=== PATIENT | male | born 1950 | race Caucasian/White ===

== ENCOUNTER 2016-08-15 08:17 | Outpatient (CLI) | payer MEDICARE, OTHER ==
[~2016-08-15] VITALS: Ht 182.9 cm; Wt 85.5 kg
--- NOTE | ~2016-08-15 | CATH ---
Cardiac Diagnostic + PCI Report Demographics Patient Name AR Blackwell Gender Male Date of 1950 Age 66 year(s) Patient Number [id number] Date of Study 08/15/2016 Visit Number [id number] Room Number [id number] [place] [id number] Ht 183 cm Wt 84.2 kg Referring Steve Dukes MD Primary Physician Physician Per[facility] Secondary Physician Physician Sangeeta VIZCAINO Diagnostic [facility] Assisting Physician Physician Sangeeta VIZCAINO Interventional [facility] Physician Creative Developer Physician Sangeeta VIZCAINO Addendum Added RCA lesion info Findings and Conclusions Diagnostic Findings and Conclusion Two vessel CAD. RCA mid 80%. LAD mid 60% at site of bifurcation with large diagonal branch. Diagnostic Recommendations PCI of RCA. Medical therapy for LAD lesion, if patient continues to have angina consider stress test on GDMT. Interventional Findings and Conclusion PCI of mid RCA using BRITTNEY with BRITTNEY. 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 s/p BRITTNEY of ostial/proximal RCA at the site of dissection since it was causing significant pressure dampening, it is important to seal the dissection with a stent. Interventional Recommendations DAPT x 1 year. Patient will be observed overnight. Hydration and followup creatinine. Patient has been instructed to not lift anything more than 5 pounds for 1 week. I will plan on seeing the patient back in 2 week(s). Aggressive risk factor management. Aggressive medical therapy for coronary artery disease. Hydration and follow up Creatinine. Cardiac diet . Optimization of medical therapy as an outpatient. Referral to Cardiac Rehabilitation now and at discharge . Procedure Description The patient was brought to the diagnostic cardiac catheterization-EP laboratory in the fasting, non-sedated state. Informed consent was obtained in the written and verbal form after the risks and benefits were explained. The patient had no further questions and agreed to proceed. The planned puncture-incision site(s) were shaved and prepped with ChloraPrep and draped in the usual sterile manner. Conscious sedation, supplemental oxygen, and pain control medications were delivered by a registered nurse under physician guidance. Surface ECG rhythm, blood pressure measurement, and pulse oximetry were monitored throughout the procedure. Arterial access. The access site was infiltrated with lidocaine. The vessel was entered with the Seldinger technique. A sheath was advanced into the vessel and used for catheter placement. Selective left coronary angiography. A catheter was advanced into the left coronary vessel ostium under Fluoroscopic guidance. Contrast was injected by hand. Images were obtained in multiple projections. Selective right coronary angiography. A catheter was advanced into the right coronary vessel ostium under fluoroscopic guidance. Contrast was injected by hand. Images were obtained in multiple projections. Stent Placement: A guiding catheter was used to intubate the vessel. A 0.14 wire was used to cross the lesion. A Drug Eluting Stent was placed. Post placement angiograms were performed. Arterial artery hemostasis was achieved. The patient was transferred to a regular nursing floor via cart accompanied by a nurse. The patient left the laboratory in stable condition. Diagnostic Cath Status: Elective Interventional Cath Status: Urgent Procedure Procedure Type Diagnostic procedure:Angiography:, Coronary Angios PCI procedure:Drug Eluting Coronary Stent:, RCA Indications: Abnormal Stress Test, Chest pain and Shortness of breath. The procedure was explained in detail to the patient. Risks, complications and alternative treatments were reviewed. Written consent was obtained. Medications Reviewed with Patient prior to Procedure. Angiographic Findings Dominance: Right Cardiac Arteries and Lesion Findings LMCA: Normal (0% Stenosis).Separate OS LAD: Lesion on Prox LAD: Ostial.50% stenosis . Lesion on Prox LAD: Proximal subsection.50% stenosis . Lesion on Mid LAD: Mid subsection.60% stenosis . Lesion on 1st Diag: Ostial.30% stenosis . LCx: There is a previous stent on 2nd Ob Margot showing wide patency. Lesion on Prox CX: Proximal subsection.20% stenosis . Lesion on 2nd Ob Margot: Comments:Stents patent. RCA: Normal (0% Stenosis).PDA and PL normal. Lesion on Mid RCA: Distal subsection.80% stenosis 24 mm length reduced to 0%. Pre procedure AIRAM III flow was noted. Post Procedure AIRAM III flow was present. The guidewire cross was successful.The lesion was diagnosed as a moderate risk lesion.Culprit lesion. Treatment results:Interventional treatment was successful. Devices used - Runthrough NS .014 x 180. Number of passes: 1. - Promus Premier 3.0 x 24 Stent. 1 inflation(s) to a max pressure of: 14 mireya. - NC Emerge Balloon 3.0 x 15. 1 inflation(s) to a max pressure of: 16 mireya. Lesion on Prox RCA: Proximal subsection.0% stenosis 12 mm length reduced to 0%. Pre procedure AIRAM III flow was noted. Post Procedure AIRAM III flow was present. The guidewire cross was successful.The lesion was diagnosed as a moderate risk lesion. Treatment results:Dissection occurred while intervening.It was treated with a stent. Comments:Guide induced dissection treated with stenting Devices used - Promus Premier 3.0 x 12 Stent. 2 inflation(s) to a max pressure of: 14 mireya. Coronary Tree Procedure Data Procedure Date Date: 08/15/2016Start: 12:46 PMEnd: 01:35 PM Entry Locations - Retrograde Percutaneous access was performed through the Right Radial artery (Primary location). A 6 Fr sheath was inserted. Hemostasis was successfully obtained using Mechanical Compression. Closure Comments: Radial band applied by Sharad Alex. 12 ml's used.. Procedure Medications Order and Administration + + + + + !Time !Medication !Dosage !Route ! + + + + + !08/15/2016 12:45 !Versed !1 mg !I.V. ! !PM ! ! ! ! + + + + + !08/15/2016 12:45 !Fentanyl !50 mcg !I.V. ! !PM ! ! ! ! + + + + + !08/15/2016 12:51 !Heparin (ACC_3) !5000 units !I.V. bolus ! !PM ! ! ! ! + + + + + !08/15/2016 01:02 !Angiomax (Bivalirudin) !65 mg !I.V. bolus ! !PM !(ACC_5) ! ! ! + + + + + 08/15/2016 01:04 !Angiomax (Bivalirudin) !1.75 mg/kg/hr!I.V. drip ! !PM !(ACC_5) ! ! ! + + + + + 08/15/2016 01:05 !Fentanyl !50 mcg !I.V. ! !PM ! ! ! ! + + + + + !08/15/2016 01:05 !Versed !1 mg !I.V. ! !PM ! ! ! ! + + + + + !08/15/2016 01:18 !Nitroglycerin !200 mcg !I.C. ! !PM ! ! ! ! + + + + + !08/15/2016 01:27 !Brilinta (Ticagrelor) !180 mg !P.O. ! !PM !(ACC_20) ! ! ! + + + + + Devices Used - A5 Fr. BS JR 4 Diag. Catheterwas used for:Right coronary angiography. - A5 Fr. BS JL 3.5 Diag. Catheterwas used for:Left coronary angiography. - A6 Fr. JR4 Guide Catheterwas used for:RCA Intervention. Contrast Material - Isovue 820068 ml Fluoroscopy Time: Diagnostic: 12:24 minutes. Total: 12:24 minutes. Fluoroscopy Dose: Diagnostic: 1262 mGy. Total: 1262 mGy. Estimated Blood Loss: 10 ml. Additional [facility] PCI Information PCI Indication:PCI for high risk Non-STEMI or unstable angina. Medical History Performed Procedures and Imaging Results - Stress testing with SPECT MPIwas performed. Results were: Positive. Risk/Extent of ischemia was: Intermediate risk. History of Disease + + + + !Diagnosis !Date !Comments ! + + + + !Hypertension ! ! ! + + + + !CAD ! ! ! + + + + Allergies - Penicillin. Risk Factors The patient risk factors include:prior PCI on 04/29/2005;cerebrovascular disease, hypertension, family history of premature CAD, last creatinine: 0.9 mg/dl, creatinine clearance: 97.45 ml/min, dyslipidemia, Current/Recent(w/in 1 year) tobacco use and prior CA . Admission Data Admission Date: 08/15/2016 Admission Time: 08:17 AM Admit Source: Other Insurance Payors: Medicare. Admission Medications + +------+------+ + + + + !Medication !Dosage!Times !Last !Last !Administered !Comments ! ! ! !Per !Delivery !Delivery ! ! ! ! ! !Day !Date !Time ! ! ! + +------+------+ + + + + !Aspirin ! ! ! ! !Yes ! ! !(any) ! ! ! ! ! ! ! + +------+------+ + + + + !Beta Amna! ! ! ! !Yes ! ! !(any) ! ! ! ! ! ! ! + +------+------+ + + + + !Statin (any)! ! ! ! !Yes ! ! + +------+------+ + + + + !CHRIS ! ! ! ! !Yes ! ! !Inhibitor ! ! ! ! ! ! ! !(any) ! ! ! ! ! ! ! + +------+------+ + + + + Clinical Evaluation Leading to Procedure - The patient's CAD presentation was assessed as: Unstable angina. - The patient's anginal syndrome during the past two weeks was assessed as: Class III according to the [place] Cardiovascular Society Classification System (CCS). Anti-anginal medications were prescribed during the past two weeks. The medication is: Beta Blockers. Hemodynamics Condition: Rest O2 Consumption: Estimated: 229.36Heart Rate: 56 bpm Pressures (mmHg) +-----+ + !Site !Pressure ! +-----+ + !AO !127/62 (86) ! +-----+ + Shunts Oxygen Values O2 Capacity 172.72 O2 Consumption 229.36 Discharge Data Discharge Date: 08/16/2016 Hospital Status: Outpatient Signatures dtt: SANGEETA PENNINGTON dtd: 08/15/16 1246 Physician Self Edit
[~2016-08-15 08:17] MED LIST: ASPIRIN EC81 MG PO; FISH OIL + D31 EACH PO; LIPITOR40 MG PO; PRINIVIL (ZESTR20 MG PO; TENORMIN25 MG PO
[2016-08-15 09:16] LABS: BASOPHIL # 0.1 K/uL (0.0-0.2); BASOPHIL % 1.1 %; EOSINOPHIL # 0.1 K/uL (0.0-0.5); EOSINOPHIL % 1.7 %; HEMATOCRIT 39.5 % (37.0-53.0); HEMOGLOBIN 12.7 g/dL (11.0-16.0); IMMATURE GRANULOCYTE % 0.2 %; LYMPHOCYTE # 1.7 K/uL (0.8-4.0); LYMPHOCYTE % 35.9 %; MCH 29.5 pg (27.0-34.0); MCHC 32.2 gm/dL (32.0-36.5); MCV 91.9 fl (83.0-98.0); MONOCYTE # 0.4 K/uL (0.0-1.0); MPV 10.7 fl (9.4-12.4); NEUTROPHIL # (ANC) 2.5 K/uL (1.4-9.0); NEUTROPHIL % 53.1 %; NRBC % 0 /100WBC (0-0.00); PLATELET COUNT 157 K/uL (150-450); RDW-CV 13.1 % (11.9-14.6); WBC 4.7 K/uL (4.0-11.0)
[2016-08-15 09:30] LABS: INR - (THERAPEUTIC) 0.99 (0.92-1.07); PROTIME 10.4 SECONDS (9.8-11.4); PTT 26 SECONDS (25-32)
[2016-08-15 09:32] LABS: ALBUMIN 3.6 gm/dL (3.5-5.0); ALK PHOS 47 IU/L (33-138); ALT 22 IU/L (12-78); ANION GAP 11.3 (10.0-19.0); AST 20 IU/L (10-40); BLOOD UREA NITROGEN 24 mg/dL (6-24); CALCIUM 8.3 mg/dL (8.5-10.5); CHLORIDE 112 mMol/L (96-110); CO2 25 mMol/L (22-32); CREATININE 0.9 mg/dL (0.6-1.3); POTASSIUM 4.3 mMol/L (3.7-5.1); SODIUM 144 mMol/L (135-145); TOTAL BILIRUBIN 0.4 mg/dL (0.0-1.5); TOTAL PROTEIN 6.8 g/dL (6.0-8.4)
[2016-08-15 09:33] LABS: ESTIMATED GFR (MDRD EQUATION) > 60
[2016-08-15 15:12] LABS: CPK 361 IU/L (35-332)
[2016-08-16 03:01] LABS: ALBUMIN 3.4 gm/dL (3.5-5.0); ALK PHOS 48 IU/L (33-138); ALT 28 IU/L (12-78); ANION GAP 10.9 (10.0-19.0); AST 23 IU/L (10-40); BLOOD UREA NITROGEN 19 mg/dL (6-24); CHLORIDE 111 mMol/L (96-110); CO2 24 mMol/L (22-32); CREATININE 1.1 mg/dL (0.6-1.3); ESTIMATED GFR (MDRD EQUATION) > 60; POTASSIUM 3.9 mMol/L (3.7-5.1); SODIUM 142 mMol/L (135-145); TOTAL PROTEIN 6.4 g/dL (6.0-8.4)
[2016-08-16 03:02] LABS: TOTAL BILIRUBIN 0.3 mg/dL (0.0-1.5)
[2016-08-16 11:56] LABS: ANION GAP 8.2 (10.0-19.0); BLOOD UREA NITROGEN 15 mg/dL (6-24); CALCIUM 8.3 mg/dL (8.5-10.5); CHLORIDE 112 mMol/L (96-110); CO2 26 mMol/L (22-32); ESTIMATED GFR (MDRD EQUATION) > 60; POTASSIUM 4.2 mMol/L (3.7-5.1); SODIUM 142 mMol/L (135-145)
[2016-08-16] MEDS ORDERED: LOPRESSOR25 MG PO (13:49)
[2016-08-16] MEDS ORDERED: BRILINTA90 MG PO (13:54)
== END 2016-08-16 14:15 | disposition disaster alternative care site (69) ==
LOC: GCAT 08:17 → GPCU 08:17 → GPOC 09:00 → GPCU 14:20 → GCAT 08-16 14:15
PROVIDERS: Internal Medicine Interventional Cardiology; Nurse Practitioner
PROC: 027034Z Dilation of Coronary Artery, One Artery with Drug-eluting Intraluminal Device, Percutaneous Approach (ICD-10-PCS; principal; 2016-08-15)
PROC: B2111ZZ Fluoroscopy of Multiple Coronary Arteries using Low Osmolar Contrast (ICD-10-PCS; principal; 2016-08-15)
DX: I25.110 Atherosclerotic heart disease of native coronary artery with unstable angina pectoris (principal); I10 Essential (primary) hypertension; I25.2 Old myocardial infarction; Z72.0 Tobacco use; E78.5 Hyperlipidemia, unspecified; E78.1 Pure hyperglyceridemia; Z79.82 Long term (current) use of aspirin; Z79.899 Other long term (current) drug therapy; Z95.5 Presence of coronary angioplasty implant and graft; Z82.49 Family history of ischemic heart disease and other diseases of the circulatory system
CPT/HCPCS: C1725; C1769; C1874; C1887; C9600; J0583; J1644; J2250; J3010; J7030; J7060